=== PATIENT | female | born 1965 | race Caucasian/White ===

== ENCOUNTER 2018-03-13 23:12 | Emergency (ER) | payer OTHER ==
[2018-03-13] MEDS: DIPHTH,PERTUSS(ACELL),TET TOX 0.5 ML DISP.SYRIN. VAX IM (23:45)
== END 2018-03-14 00:01 | disposition home or self-care (01) ==
LOC: ER 03-14 00:01
DX: S80.11XA Contusion of right lower leg, initial encounter (principal); J44.9 Chronic obstructive pulmonary disease, unspecified; K21.9 Gastro-esophageal reflux disease without esophagitis; X58.XXXA Exposure to other specified factors, initial encounter; Y93.89 Activity, other specified; Y99.8 Other external cause status; Y92.89 Other specified places as the place of occurrence of the external cause
CPT/HCPCS: 73590; 90471; 90715; 99284-25

== ENCOUNTER 2018-12-19 19:34 | Emergency (ER) | payer SELFPAY ==
[~2018-12-19] VITALS: Ht 162.6 cm; Wt 90.7 kg
[~2018-12-19 19:34] MED LIST: ACET500T68 PO; AMIT100T PO; ATROVENT HFA12.9 GM IH; BUDE10.22 IH; BUPR150T8 PO; CIPR500T94 PO; FLUO20CA8 PO; IPRA4AER IH; LEVO500T8 PO; OMEP20TA63 PO; PRED-220 PO; VENTOLIN HFA18 GM INH; ZOLP10TA4 PO; ZOLP12.54 PO
[2018-12-19] MEDS: IV NORMAL SALINE 500ML BAG 500 ML IV ONE (20:22)
[2018-12-19 20:27] LABS: BASO # 0.1 x10^3/uL (0.0-0.2); BASO % 1 % (0-3); EOS # 0.2 x10^3/uL (0.0-0.7); EOS % 2 % (0-3); HEMATOCRIT 46.1 % (36.0-47.0); HEMOGLOBIN 15.6 g/dL (12.0-15.5); LYMPH # 2.8 x10^3/uL (1.0-4.8); LYMPH % 28 % (24-48); MEAN CORPUSCULAR HEMOGLOBIN 29 pg (25-35); MEAN CORPUSCULAR HGB CONC 34 g/dL (31-37); MEAN CORPUSCULAR VOLUME 87 fL (79-100); MONO # 0.4 x10^3/uL (0.0-1.1); MONO % 4 % (0-9); NEUT # 6.7 x10^3uL (1.8-7.7); NEUT % 66 % (31-73); PLATELET COUNT 227 x10^3/uL (140-400); RED BLOOD COUNT 5.33 x10^6/uL (3.50-5.40); RED CELL DISTRIBUTION WIDTH 14.9 % (11.5-14.5); WHITE BLOOD COUNT 10.2 x10^3/uL (4.0-11.0)
--- NOTE | 2018-12-19 20:28 | PHYS DOC ---
Past Medical History Past Medical History: COPD, Depression, GERD, Other Additional Past Medical Histor: INSOMNIA, CARPEL TUNNEL Past Surgical History: Tubal ligation Additional Past Surgical Histo: RIGHT HAND, LEFT HAND,RIGHT ELBOW, CARPEL TUNNEL Smoking: Cigarettes, 1 Pack Per Day Additional Information: 3-5 minutes of counseling regarding smoking cessation was provided. Alcohol Use: None Drug Use: None Adult General Chief Complaint Chief Complaint: DIZZY/LIGHT HEADED HPI HPI Patient is a 53 year old female who presents with dizziness and lightheadedness. This started earlier today. No chest pain or palpitations. Patient has had similar symptoms when she's had COPD with respiratory failure however she is not feeling any difficulty breathing at this time. She notes that her mouth is dry. Denies any nausea or vomiting reports symptoms get worse with standing better with sitting denies any polydipsia, polyuria, polyphagia. No family history of diabetes. No fever or chills. The intensity is moderate for the dizziness when she is standing up.[] Review of Systems Review of Systems Constitutional: Denies fever or chills [] Eyes: Denies change in visual acuity, redness, or eye pain [] HENT: Denies nasal congestion or sore throat [] Respiratory: Denies cough or shortness of breath [] Cardiovascular: No chest pain or palpitations[] GI: Denies abdominal pain, nausea, vomiting, bloody stools or diarrhea [] : Denies dysuria or hematuria [] Musculoskeletal: Denies back pain or joint pain [] Integument: Denies rash or skin lesions [] Neurologic: Denies headache, focal weakness or sensory changes [] Endocrine: Denies polyuria or polydipsia [] All other systems were reviewed and found to be within normal limits, except as documented in this note. Current Medications Current Medications Current Medications Medications (Trade) Dose Ordered Sig/Mary Start Time Stop Time Status Last Admin Dose Admin Sodium Chloride 500 ml @ 500 mls/hr 1X ONCE 12/19/18 20:15 12/19/18 21:14 DC 12/19/18 20:22 500 MLS/HR Allergies Allergies Allergies Coded Allergies Type Severity Reaction Last Updated Verified doxycycline Allergy Intermediate rash and sob 07/28/18 Yes Physical Exam Physical Exam Constitutional: Well developed, well nourished, no acute distress, non-toxic appearance. [] HENT: Normocephalic, atraumatic, bilateral external ears normal, oropharynx dry chest membranes, no oral exudates, nose normal. [] Eyes: PERRLA, EOMI, conjunctiva normal, no discharge. [] Neck: Normal range of motion, no tenderness, supple, no stridor. [] Cardiovascular:Heart rate regular rhythm, no murmur [] Lungs & Thorax: Bilateral breath sounds clear to auscultation [] Abdomen: Bowel sounds normal, soft, no tenderness, no masses, no pulsatile masses. [] Skin: Warm, dry, no erythema, no rash. [] Back: No tenderness, no CVA tenderness. [] Extremities: No tenderness, no cyanosis, no clubbing, ROM intact, no edema. [] Neurologic: Alert and oriented X 3, normal motor function, normal sensory function, no focal deficits noted. No nystagmus noted.[] Psychologic: Affect normal, judgement normal, mood normal. [] Current Patient Data Vital Signs Vital Signs Date Time Temp Pulse Resp B/P (MAP) Pulse Ox O2 Delivery O2 Flow Rate FiO2 12/19/18 20:01 98.6 86 20 151/81 (104) 96 Room Air 98.6 Lab Values Laboratory Tests Test 12/19/18 20:00 12/19/18 20:08 Urine Collection Type Unknown Urine Color Yellow Urine Clarity Clear Urine pH 6.5 Urine Specific Enochs 1.010 Urine Protein Negative mg/dL (NEG-TRACE) Urine Glucose (UA) Negative mg/dL (NEG) Urine Ketones (Stick) Negative mg/dL (NEG) Urine Blood Negative (NEG) Urine Nitrite Negative (NEG) Urine Bilirubin Negative (NEG) Urine Urobilinogen Dipstick 0.2 mg/dL (0.2 mg/dL) Urine Leukocyte Esterase Small (NEG) Urine RBC 0 /HPF (0-2) Urine WBC 5-10 /HPF (0-4) Urine Squamous Epithelial Cells Mod /LPF Urine Bacteria Mod /HPF (0-FEW) White Blood Count 10.2 x10^3/uL (4.0-11.0) Red Blood Count 5.33 x10^6/uL (3.50-5.40) Hemoglobin 15.6 g/dL (12.0-15.5) H Hematocrit 46.1 % (36.0-47.0) Mean Corpuscular Volume 87 fL (79-100) Mean Corpuscular Hemoglobin 29 pg (25-35) Mean Corpuscular Hemoglobin Concent 34 g/dL (31-37) Red Cell Distribution Width 14.9 % (11.5-14.5) H Platelet Count 227 x10^3/uL (140-400) Neutrophils (%) (Auto) 66 % (31-73) Lymphocytes (%) (Auto) 28 % (24-48) Monocytes (%) (Auto) 4 % (0-9) Eosinophils (%) (Auto) 2 % (0-3) Basophils (%) (Auto) 1 % (0-3) Neutrophils # (Auto) 6.7 x10^3uL (1.8-7.7) Lymphocytes # (Auto) 2.8 x10^3/uL (1.0-4.8) Monocytes # (Auto) 0.4 x10^3/uL (0.0-1.1) Eosinophils # (Auto) 0.2 x10^3/uL (0.0-0.7) Basophils # (Auto) 0.1 x10^3/uL (0.0-0.2) Prothrombin Time 12.5 SEC (11.7-14.0) Prothrombin Time INR 1.0 (0.8-1.1) Sodium Level 137 mmol/L (136-145) Potassium Level 3.7 mmol/L (3.5-5.1) Chloride Level 99 mmol/L (98-107) Carbon Dioxide Level 30 mmol/L (21-32) Anion Gap 8 (6-14) Blood Urea Nitrogen 6 mg/dL (7-20) L Creatinine 0.9 mg/dL (0.6-1.0) Estimated GFR (Cockcroft-Gault) 65.0 BUN/Creatinine Ratio 7 (6-20) Glucose Level 102 mg/dL (70-99) H Calcium Level 9.3 mg/dL (8.5-10.1) Magnesium Level 2.0 mg/dL (1.8-2.4) Total Bilirubin 0.3 mg/dL (0.2-1.0) Aspartate Amino Transferase (AST) 23 U/L (15-37) Alanine Aminotransferase (ALT) 17 U/L (14-59) Alkaline Phosphatase 132 U/L (46-116) H Troponin I Quantitative < 0.017 ng/mL (0.000-0.055) II-Ekl-Z-Type Natriuretic Peptide 32 pg/mL (0-124) Total Protein 7.8 g/dL (6.4-8.2) Albumin 3.7 g/dL (3.4-5.0) Albumin/Globulin Ratio 0.9 (1.0-1.7) L Laboratory Tests 12/19/18 20:08 Laboratory Tests 12/19/18 20:08 EKG EKG EKG shows a sinus rhythm at 81 bpm, left axis, QTC of 474 ms, no ST elevations, compared with EKG of 07/27/2018, no acute changes are present.[] Interpretation Time: Interpreted by me at 2008 Radiology/Procedures Radiology/Procedures Portable AP chest X-ray COMPARISON:07/27/2018 FINDINGS: Heart is normal in size. Bilateral prominent interstitial opacities. No focal herniation. No pneumothorax or pleural effusion. Visualized bony thorax within normal limits. IMPRESSION: Bilateral interstitial opacities may be secondary to interstitial pulmonary edema or atypical/viral infection. CT head without IV contrast COMPARISON:None FINDINGS: No pathologic extra-axial or intra-axial fluid collection. The ventricles and basal cisterns are within normal limits. No acute intracranial bleed. No focal loss of martin-white differentiation. Visualized orbits are normal limits. No suspicious calvarial lesion. Visualized paranasal sinuses and mastoid air cells are clear. IMPRESSION: No acute intracranial process on this noncontrast CT. If concern for acute ischemic stroke is high, please consider MRI brain.[] Course & Med Decision Making Course & Med Decision Making Pertinent Labs and Imaging studies reviewed. (See chart for details) Medical decision making: There is no evidence of an acute coronary syndrome, no evidence of stroke syndrome, mass, or bleed. Patient does not appear to be in congestive heart failure. This may be an atypical/viral infection. May also be related to hydration status given her physical exam however her orthostatic vital signs were appropriate. She is also noted to have white cells in the urine although this appears to be a contaminated specimen. We will cover both respiratory and urine with antibiotic coverage. ED course: Patient arrived, was placed in bed, tolerated exam well. Patient was transferred to and from [place] with any complications. After return of the laboratory and imaging findings, these were discussed with patient and family who voiced understanding. All questions were answered. Patient was discharged in improved condition.[] Dragon Disclaimer Dragon Disclaimer This electronic medical record was generated, in whole or in part, using a voice recognition dictation system. Departure Departure Impression: Primary Impression: Dizziness Additional Impressions: Urinary tract infection Lung infection Disposition: 01 HOME, SELF-CARE Condition: IMPROVED Referrals: SEVEN ALBARADO JR, MD (PCP) Follow-up in 2 days Patient Instructions: Chronic Obstructive Pulmonary Disease, Dizziness, Urinary Tract Infection Additional Instructions: Drink plenty of fluids. Follow-up with your regular doctor. Return to the ER if worsening dizziness, difficulty breathing, or any other concerns. Scripts Sulfamethoxazole/Trimethoprim (BACTRIM DS TABLET) 1 Each Tablet 1 TAB PO BID, #20 TAB Prov: JUAN LUIS ROCK DO 12/19/18 Problem Qualifiers Additional Impressions: Urinary tract infection Urinary tract infection type: site unspecified Hematuria presence: without hematuria Qualified Codes: N39.0 - Urinary tract infection, site not specified JUAN LUIS ROCK DO Dec 19, 2018 20:28
[2018-12-19 20:32] LABS: BILIRUBIN,URINE NEGATIVE (NEG); CLARITY,URINE CLEAR; COLOR,URINE YELLOW; NITRITE,URINE NEGATIVE (NEG); PH,URINE 6.5; PROTEIN,URINE NEGATIVE (NEG-TRACE); UROBILINOGEN,URINE 0.2 mg/dL (0.2 mg/dL)
[2018-12-19 20:35] LABS: CALCIUM 9.3 mg/dL (8.5-10.1); CREATININE 0.9 mg/dL (0.6-1.0); POTASSIUM 3.7 mmol/L (3.5-5.1); PROTHROMBIN TIME PATIENT 12.5 SEC (11.7-14.0)
[2018-12-19 20:41] LABS: ALBUMIN 3.7 g/dL (3.4-5.0); ALBUMIN/GLOBULIN RATIO 0.9 (1.0-1.7); TOTAL BILIRUBIN 0.3 mg/dL (0.2-1.0); TOTAL PROTEIN 7.8 g/dL (6.4-8.2)
[2018-12-19 20:42] LABS: BACTERIA,URINE MOD /HPF (0-FEW); RBC,URINE 0 /HPF (0-2); SQUAMOUS EPITHELIAL CELL,UR MOD /LPF
--- NOTE | 2018-12-19 21:00 | RAD ---
PQRS Compliance statement: One or more of the following individualized dose reduction techniques were utilized for this examination: 1. Automated exposure control. 2. Adjustment of the mA and/or kV according to patient size. 3. Use of iterative reconstruction technique. Indication:DIZZINESS TECHNIQUE: CT head without IV contrast COMPARISON:None FINDINGS: No pathologic extra-axial or intra-axial fluid collection. The ventricles and basal cisterns are within normal limits. No acute intracranial bleed. No focal loss of martin-white differentiation. Visualized orbits are normal limits. No suspicious calvarial lesion. Visualized paranasal sinuses and mastoid air cells are clear. IMPRESSION: No acute intracranial process on this noncontrast CT. If concern for acute ischemic stroke is high, please consider MRI brain. Electronically signed by: Vinicio Chau DO (12/19/2018 8:56 PM) [facility]
--- NOTE | 2018-12-19 21:10 | RAD ---
Indication:Dizzy TECHNIQUE:Portable AP chest X-ray COMPARISON:07/27/2018 FINDINGS: Heart is normal in size. Bilateral prominent interstitial opacities. No focal herniation. No pneumothorax or pleural effusion. Visualized bony thorax within normal limits. IMPRESSION: Bilateral interstitial opacities may be secondary to interstitial pulmonary edema or atypical/viral infection. Electronically signed by: Vinicio Chau DO (12/19/2018 9:05 PM) [facility]
[2018-12-19] MEDS ORDERED: SULF1TAB24 PO (21:34)
[2018-12-19 21:52] VITALS: BP 124/67
--- NOTE | 2018-12-20 01:17 | EKG ---
[facility] [address] [place] [address] Test Date: 2018-12-19 Test Time: 20:08:59 Pat Name: CHAY BAKER Department: Room: Gender: F Chief Learning Officer: : 1965 Requested By: JUAN LUIS ROCK Order Number: [id number] Reading MD: Measurements Intervals Ryder Rate: 81 P: 44 MA: 138 QRS: -21 QRSD: 80 T: 32 QT: 408 QTc: 474 Interpretive Statements SINUS RHYTHM LEFTWARD AXIS QRS(T) CONTOUR ABNORMALITY CONSIDER ANTEROSEPTAL MYOCARDIAL DAMAGE PROLONGED QT POSSIBLY ABNORMAL ECG RI6.01 No previous ECG available for comparison
== END 2018-12-19 21:56 | disposition home or self-care (01) ==
LOC: ER 19:34
DX: N39.0 Urinary tract infection, site not specified (principal); R42 Dizziness and giddiness; J18.9 Pneumonia, unspecified organism; J44.9 Chronic obstructive pulmonary disease, unspecified; F32.9 Major depressive disorder, single episode, unspecified; K21.9 Gastro-esophageal reflux disease without esophagitis; F17.210 Nicotine dependence, cigarettes, uncomplicated; Z98.51 Tubal ligation status; Z88.1 Allergy status to other antibiotic agents
CPT/HCPCS: 36415; 70450; 71045; 80053; 81001; 83735; 83880; 84484; 85025; 85610; 93005; 96360; 99284; J7040

== ENCOUNTER 2019-09-18 02:31 | Emergency (ER) | payer SELFPAY ==
[~2019-09-18] VITALS: Ht 170.2 cm; Wt 90.7 kg
[~2019-09-18 02:31] MED LIST changes: +SULF1TAB24 PO
[2019-09-18] MEDS ORDERED: IPRATRPIUM/ALBUTEROL 0.5/2.5MG 3 ML NEBU. ONE (02:49)
[2019-09-18] MEDS ORDERED: IPRATRPIUM/ALBUTEROL 0.5/2.5MG 3 ML NEBU. NEB ONE (03:00)
[2019-09-18] MEDS ORDERED: EPINEPHrine 1 MG/ML VIAL IM PRN (03:45)
[2019-09-18] MEDS ORDERED: IV NORMAL SALINE 1000ML BAG 500 ML IV ONE (03:45)
[2019-09-18] MEDS ORDERED: RACEPINEPHRINE 2.25% 0.5 ML NEBU. NEB ONE (04:00)
--- NOTE | 2019-09-18 05:08 | PHYS DOC ---
Past Medical History Past Medical History: COPD, Depression, GERD, Other Additional Past Medical Histor: INSOMNIA, CARPEL TUNNEL Past Surgical History: Tubal ligation Additional Past Surgical Histo: RIGHT HAND, LEFT HAND,RIGHT ELBOW, CARPEL TUNNEL Alcohol Use: None Drug Use: None Adult General Chief Complaint Chief Complaint: ALLERGIC REACTION HPI HPI Patient is a 54 year old female presents to the ED with a chief complaint of allergic reaction. Patient states that she took an unknown medication which caused her to have hives and felt like her throat was closing. Patient has a history of COPD. EMS arrived and gave 50 mg IV Benadryl. Family states that mistakenly patient took the medication for the fish tank which is goldfish amoxicillin and took it for 2 days. Patient states that she did not do this to herself but that it was an accident. Review of Systems Review of Systems Constitutional: Denies fever or chills [] Eyes: Denies change in visual acuity, redness, or eye pain [] HENT: Complains of pain in her throat[] Respiratory: Complains of shortness of breath[] Cardiovascular: Denies chest pain[] GI: Denies abdominal pain, nausea, vomiting, bloody stools or diarrhea [] : Denies dysuria or hematuria [] Musculoskeletal: Denies back pain or joint pain [] Integument: Complains of Diffuse hives Neurologic: Denies headache, focal weakness or sensory changes [] All other systems were reviewed and found to be within normal limits, except as documented in this note. Current Medications Current Medications Current Medications Medications (Trade) Dose Ordered Sig/Mary Start Time Stop Time Status Last Admin Dose Admin Albuterol/ Ipratropium (Duoneb) 3 ml STK-MED ONCE 09/18/19 02:49 09/18/19 02:49 DC Epinephrine (S2 Racepinephrine) 0.5 ml 1X ONCE 09/18/19 04:00 09/18/19 04:01 DC 09/18/19 04:05 0.5 ML Epinephrine HCl (Adrenalin) 0.3 mg PRN Q5MIN PRN 09/18/19 03:45 Sodium Chloride 500 ml @ 500 mls/hr 1X ONCE 09/18/19 03:45 09/18/19 04:44 DC Allergies Allergies Allergies Coded Allergies Type Severity Reaction Last Updated Verified doxycycline Allergy Intermediate rash and sob 9/9/18 Yes Physical Exam Physical Exam Constitutional: Well developed, well nourished, no acute distress, non-toxic appearance. [] HENT: Normocephalic, atraumatic[] Eyes: PERRLA, EOMI [] Neck: Normal range of motion, no tenderness, airways patent[] Cardiovascular:Heart rate regular rhythm, no murmur [] Lungs & Thorax: Wheezing bilaterally[] Abdomen: Bowel sounds normal, soft, no tenderness [] Skin: Diffuse rash consistent with hives[] Extremities: No tenderness, ROM intact, no edema. [] Neurologic: Alert and oriented X 3 [] Current Patient Data Vital Signs Vital Signs Date Time Temp Pulse Resp B/P (MAP) Pulse Ox O2 Delivery O2 Flow Rate FiO2 09/18/19 05:38 76 18 119/75 (90) 96 Nasal Cannula 2.0 09/18/19 02:34 95.3 95.3 EKG EKG [] Radiology/Procedures Radiology/Procedures [] Course & Med Decision Making Course & Med Decision Making On arrival to the ER patient was given Solu-Medrol 125 mg IV and Pepcid 20 mg IV. Patient also given a DuoNeb breathing treatment. Patient's family also came to the ED. Patient states that her throat was hurting and she feels like her throat is tight. Ordered racemic epinephrine elevation treatment. We'll continue to monitor the patient. Patient's rash is almost resolved. Patient is sleeping comfortably in the ER. Discussed results and plan of care with patient. Patient is instructed to follow up with PCP in one to 2 days. Appropriate discharge instructions given to patient to return to the ED or to seek immediate medical evaluation. Patient is instructed to return to the ED if symptoms worsen or if any concerns. Dragon Disclaimer Dragon Disclaimer This electronic medical record was generated, in whole or in part, using a voice recognition dictation system. Departure Departure Impression: Primary Impression: Allergic reaction Disposition: 01 HOME, SELF-CARE Condition: IMPROVED Referrals: SEVEN ALBARADO JR, MD (PCP) Patient Instructions: Allergies, Generic, Drug Allergy Additional Instructions: Use Benadryl as needed. Scripts Famotidine (PEPCID) 20 Mg Tablet 20 MG PO DAILY, #7 TAB Prov: SAULO GERARD DO 09/18/19 Prednisone (PREDNISONE) 20 Mg Tablet 2 TAB PO DAILY for 5 Days, #10 TAB Prov: GOLLAPALLI,SAULO E DO 09/18/19 SAULO GERARD DO Sep 18, 2019 05:08
[2019-09-18] MEDS ORDERED: FAMO-63 PO (05:29)
[2019-09-18] MEDS ORDERED: PRED20TA PO (05:29)
[2019-09-18 06:08] VITALS: BP 118/71
[2019-09-18] MEDS ORDERED: methylPREDNISolone SOD SUCC PF 125 MG/2 ML VIAL. IV ONE (23:15)
[2019-09-18] MEDS ORDERED: diphenhydrAMINE 50 MG/ML VIAL IVP ONE (23:15)
[2019-09-18] MEDS ORDERED: FAMOTIDINE 20 MG/2 ML VIAL IVP ONE (23:15)
== END 2019-09-18 06:42 | disposition home or self-care (01) ==
LOC: ER 02:31
DX: L50.0 Allergic urticaria (principal); R06.2 Wheezing; J44.9 Chronic obstructive pulmonary disease, unspecified; K21.9 Gastro-esophageal reflux disease without esophagitis; F32.9 Major depressive disorder, single episode, unspecified; Z98.51 Tubal ligation status; Z88.1 Allergy status to other antibiotic agents
CPT/HCPCS: 94640; 96374; 96375; 99284; J2930; J3490; J7030; J7620

== ENCOUNTER 2020-01-11 12:42 | Emergency (ER) | payer SELFPAY ==
[~2020-01-11] VITALS: Ht 165.1 cm; Wt 85.0 kg
[~2020-01-11 12:42] MED LIST changes: +FAMO-63 PO; +FLUO20CA20 PO; -FLUO20CA8 PO; +PRED20TA PO
[2020-01-11] MEDS ORDERED: EPINEPHrine 1 MG/ML VIAL ONE (12:52)
[2020-01-11] MEDS ORDERED: EPINEPHrine 1 MG/ML VIAL IM ONE (13:00)
[2020-01-11] MEDS ORDERED: diphenhydrAMINE 50 MG/ML VIAL IV ONE (13:00)
[2020-01-11] MEDS ORDERED: methylPREDNISolone SOD SUCC PF 125 MG/2 ML VIAL. IV ONE (13:00)
[2020-01-11] MEDS ORDERED: FAMOTIDINE 20 MG/2 ML VIAL IVP ONE (13:00)
[2020-01-11 13:12] LABS: BASO % 0 % (0-3); EOS # 0.1 x10^3/uL (0.0-0.7); EOS % 2 % (0-3); HEMATOCRIT 44.9 % (36.0-47.0); HEMOGLOBIN 15.3 g/dL (12.0-15.5); LYMPH # 2.4 x10^3/uL (1.0-4.8); LYMPH % 42 % (24-48); MEAN CORPUSCULAR HEMOGLOBIN 30 pg (25-35); MEAN CORPUSCULAR HGB CONC 34 g/dL (31-37); MEAN CORPUSCULAR VOLUME 88 fL (79-100); MONO # 0.1 x10^3/uL (0.0-1.1); MONO % 3 % (0-9); NEUT # 3.1 x10^3/uL (1.8-7.7); NEUT % 54 % (31-73); PLATELET COUNT 216 x10^3/uL (140-400); RED BLOOD COUNT 5.11 x10^6/uL (3.50-5.40); RED CELL DISTRIBUTION WIDTH 15.1 % (11.5-14.5); WHITE BLOOD COUNT 5.7 x10^3/uL (4.0-11.0)
[2020-01-11 13:13] LABS: CALCIUM 8.1 mg/dL (8.5-10.1); CREATININE 0.8 mg/dL (0.6-1.0); GFR 74.2; POTASSIUM 3.8 mmol/L (3.5-5.1)
[2020-01-11] MEDS ORDERED: RACEPINEPHRINE 2.25% 0.5 ML NEBU. NEB ONE (13:30)
[2020-01-11 15:00] VITALS: BP 153/100
[2020-01-11] MEDS ORDERED: EPIPEN 2-P0.3 MG/0.3 IM (15:20)
[2020-01-11] MEDS ORDERED: PRED50TA PO (15:20)
[2020-01-11] MEDS ORDERED: FAMO-63 PO (15:20)
--- NOTE | 2020-01-11 15:52 | PHYS DOC ---
Past Medical History Past Medical History: COPD, Depression, GERD, Other Additional Past Medical Histor: INSOMNIA, CARPEL TUNNEL Past Surgical History: Tubal ligation Additional Past Surgical Histo: RIGHT HAND, LEFT HAND,RIGHT ELBOW, CARPEL TUNNEL Smoking Status: Current Every Day Smoker Alcohol Use: None Drug Use: None Adult General Chief Complaint Chief Complaint: ALLERGIC REACTION HPI HPI Patient is a 54 year old female presenting with chief complaint of allergic reaction she took amoxicillin and within 30 minutes she had development of diffuse redness all over her body as well as shortness of breath and felt like she could not swallow. Paramedics gave a dose of epinephrine Patient is a previous history of amoxicillin allergy but did not think it was this severe. Review of Systems Review of Systems Limited by the acuity Current Medications Current Medications Current Medications Medications (Trade) Dose Ordered Sig/Mary Start Time Stop Time Status Last Admin Dose Admin Diphenhydramine HCl (Benadryl) 50 mg 1X ONCE 01/11/20 13:00 01/11/20 13:01 DC Epinephrine (S2 Racepinephrine) 0.5 ml 1X ONCE 01/11/20 13:30 01/11/20 13:31 DC 01/11/20 13:40 0.5 ML Epinephrine HCl (Adrenalin) 0.3 mg 1X ONCE 01/11/20 13:00 01/11/20 13:01 DC 01/11/20 12:55 0.3 MG Famotidine (Pepcid Vial) 20 mg 1X ONCE 01/11/20 13:00 01/11/20 13:01 DC 01/11/20 13:03 20 MG Methylprednisolone Sodium Succinate (SOLU-Medrol 125MG VIAL) 125 mg 1X ONCE 01/11/20 13:00 01/11/20 13:01 DC 01/11/20 13:03 125 MG Allergies Allergies Allergies Coded Allergies Type Severity Reaction Last Updated Verified amoxicillin Allergy Severe anaphylaxis 01/11/20 Yes doxycycline Allergy Intermediate rash and sob 07/28/18 Yes Physical Exam Physical Exam Constitutional: Well developed, ill-appearing HENT: No stridor but there is some swelling of the tongue as well as a MalAMPATI 3 there is some uvula edema Neck: Normal range of motion, no tenderness, supple, no stridor. [] Cardiovascular:Heart rate regular rhythm, no murmur [] Lungs & Thorax: Bilateral breath sounds clear to auscultation []no definite wheezing Abdomen: Bowel sounds normal, soft, no tenderness, no masses, no pulsatile masses. [] Skin: Diffuse erythematous rash on along the whole body Back: No tenderness, no CVA tenderness. [] Extremities: No tenderness, no cyanosis, no clubbing, ROM intact, no edema. [] Neurologic: Alert and oriented X 3, normal motor function, normal sensory function, no focal deficits noted. [] Psychologic: Affect normal, judgement normal, mood normal. [] Current Patient Data Vital Signs Vital Signs Date Time Temp Pulse Resp B/P (MAP) Pulse Ox O2 Delivery O2 Flow Rate FiO2 01/11/20 15:00 84 153/100 (117) 97 Room Air 01/11/20 12:42 96.0 20 96.0 Lab Values Laboratory Tests Test 01/11/20 12:45 White Blood Count 5.7 x10^3/uL (4.0-11.0) Red Blood Count 5.11 x10^6/uL (3.50-5.40) Hemoglobin 15.3 g/dL (12.0-15.5) Hematocrit 44.9 % (36.0-47.0) Mean Corpuscular Volume 88 fL (79-100) Mean Corpuscular Hemoglobin 30 pg (25-35) Mean Corpuscular Hemoglobin Concent 34 g/dL (31-37) Red Cell Distribution Width 15.1 % (11.5-14.5) H Platelet Count 216 x10^3/uL (140-400) Neutrophils (%) (Auto) 54 % (31-73) Lymphocytes (%) (Auto) 42 % (24-48) Monocytes (%) (Auto) 3 % (0-9) Eosinophils (%) (Auto) 2 % (0-3) Basophils (%) (Auto) 0 % (0-3) Neutrophils # (Auto) 3.1 x10^3/uL (1.8-7.7) Lymphocytes # (Auto) 2.4 x10^3/uL (1.0-4.8) Monocytes # (Auto) 0.1 x10^3/uL (0.0-1.1) Eosinophils # (Auto) 0.1 x10^3/uL (0.0-0.7) Basophils # (Auto) 0.0 x10^3/uL (0.0-0.2) Sodium Level 138 mmol/L (136-145) Potassium Level 3.8 mmol/L (3.5-5.1) Chloride Level 103 mmol/L (98-107) Carbon Dioxide Level 27 mmol/L (21-32) Anion Gap 8 (6-14) Blood Urea Nitrogen 9 mg/dL (7-20) Creatinine 0.8 mg/dL (0.6-1.0) Estimated GFR (Cockcroft-Gault) 74.2 Glucose Level 180 mg/dL (70-99) H Calcium Level 8.1 mg/dL (8.5-10.1) L Laboratory Tests 01/11/20 12:45 Laboratory Tests 01/11/20 12:45 EKG EKG [] Radiology/Procedures Radiology/Procedures [] Course & Med Decision Making Course & Med Decision Making Critical care time was 45 minutes exclusive of procedures.Pertinent Labs and Imaging studies reviewed. (See chart for details) []This is a 54 show female with anaphylaxis secondary to amoxicillin. In the emergency room initially I was quite concerned about her airway she was able to talk but had a very whispery hoarse voice but there was no stridor and she was tolerating her secretions her oxygen on supplement oxygen we did get up to 100% on a nonrebreather. I did call anesthesia down in the attending DR MARTINES as well as [employer] they also did come down and evaluate the patient. At this point time we agreed on racemic epinephrine as well as optimize medical management of anaphylaxis which we are doing already. On reevaluation patient was reevaluated several times by me at the bedside for her upper airway symptoms improved dramatically she was able to talk her force voice went away she had a normal voice and reevaluation the swelling of her tongue did go down. It was basically normal on reevaluation a couple hours later. We did give the racemic epi time to wear off and the patient remained asymptomatic she was feeling much better. I did offer admission overnight for observation due to the severity of her symptoms but she was very eager to go home. I talked with her in detail about strict return precautions for any recrudescence of symptoms and she is agreeable to that plan. Prescription for prednisone as well as Pepcid continue Benadryl I gave an EpiPen prescription and counseled her on indications for use. 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 Departure Departure Impression: Primary Impression: Anaphylaxis Disposition: 01 HOME, SELF-CARE Condition: IMPROVED Patient Instructions: Anaphylactic Reaction, [id number] Scripts Epinephrine (EPIPEN 2-JAD) 0.3 Mg/0.3 Ml Auto.injct 1 SYR IM ONCE PRN for ANAPHYLAXIS for 1 Day, #1 PACKET 0 Refills Prov: ELENITA NÚÑEZ MD 01/11/20 Famotidine (PEPCID) 20 Mg Tablet 20 MG PO BID for 5 Days, #10 TAB Prov: ELENITA NÚÑEZ MD 01/11/20 Prednisone (PREDNISONE) 50 Mg Tablet 1 TAB PO DAILY, #5 TAB Prov: ELENITA NÚÑEZ MD 01/11/20 ELENITA NÚÑEZ MD Jan 11, 2020 15:52
== END 2020-01-11 15:36 | disposition home or self-care (01) ==
LOC: ER 12:42
DX: T78.2XXA Anaphylactic shock, unspecified, initial encounter (principal); T36.0X5A Adverse effect of penicillins, initial encounter; J44.9 Chronic obstructive pulmonary disease, unspecified; F32.9 Major depressive disorder, single episode, unspecified; K21.9 Gastro-esophageal reflux disease without esophagitis; F51.04 Psychophysiologic insomnia; F17.200 Nicotine dependence, unspecified, uncomplicated; Z98.51 Tubal ligation status; Z98.890 Other specified postprocedural states; Z88.1 Allergy status to other antibiotic agents; Z79.899 Other long term (current) drug therapy; Y92.89 Other specified places as the place of occurrence of the external cause
CPT/HCPCS: 36415; 80048; 85025; 94640; 96372; 96374; 96375; 99291; J0171; J2930; J3490; 99285

== ENCOUNTER 2020-01-22 02:51 | Emergency (ER) | payer SELFPAY ==
[~2020-01-22] VITALS: Ht 165.1 cm; Wt 81.8 kg
[~2020-01-22 02:51] MED LIST changes: +EPIPEN 2-P0.3 MG/0.3 IM; +PRED50TA PO
[2020-01-22] MEDS ORDERED: IV NORMAL SALINE 1000ML BAG 1,000 ML IV ONE (03:00)
[2020-01-22] MEDS ORDERED: diphenhydrAMINE 50 MG/ML VIAL IVP ONE (03:00)
[2020-01-22] MEDS ORDERED: FAMOTIDINE 20 MG/2 ML VIAL IVP ONE (03:00)
[2020-01-22] MEDS ORDERED: methylPREDNISolone SOD SUCC PF 125 MG/2 ML VIAL. IV ONE (03:00)
--- NOTE | 2020-01-22 03:02 | PHYS DOC ---
Past Medical History Past Medical History: COPD, Depression, GERD, Other Additional Past Medical Histor: INSOMNIA, CARPEL TUNNEL Past Surgical History: Tubal ligation Additional Past Surgical Histo: RIGHT HAND, LEFT HAND,RIGHT ELBOW, CARPEL TUNNEL Smoking Status: Current Every Day Smoker Alcohol Use: None Drug Use: None Adult General Chief Complaint Chief Complaint: ALLERGIC REACTION [facility] HPI Patient is a 54 year old female who presents to the ER secondary to concern for allergic reaction. Patient states that around 2:00 she took Bactrim which she had left over from a previous infection. She was taken the medication for dental infection she felt coming on and soon thereafter she began feeling tingly and developed a rash and felt as though her throat was swelling. She immediately used her EpiPen which she received from the emergency department 2 weeks ago secondary to an anaphylactic reaction to amoxicillin. She states that this help her symptoms but she continues to have some sensation of throat swelling. She has never had a reaction to Bactrim previously. She denies chest pain Review of Systems Review of Systems All other ROS is negative unless otherwise stated in HPI Current Medications Current Medications Current Medications Medications (Trade) Dose Ordered Sig/Mary Start Time Stop Time Status Last Admin Dose Admin Diphenhydramine HCl (Benadryl) 25 mg 1X ONCE 01/22/20 03:00 01/22/20 03:14 DC 01/22/20 03:12 25 MG Famotidine (Pepcid Vial) 20 mg 1X ONCE 01/22/20 03:00 01/22/20 03:14 DC 01/22/20 03:12 20 MG Methylprednisolone Sodium Succinate (SOLU-Medrol 125MG VIAL) 125 mg 1X ONCE 01/22/20 03:00 01/22/20 03:14 DC 01/22/20 03:11 125 MG Sodium Chloride 1,000 ml @ 1,000 mls/hr 1X ONCE 01/22/20 03:00 01/22/20 03:59 01/22/20 03:13 1,000 MLS/HR Allergies Allergies Allergies Coded Allergies Type Severity Reaction Last Updated Verified amoxicillin Allergy Severe anaphylaxis 01/11/20 Yes doxycycline Allergy Intermediate rash and sob 07/28/18 Yes Physical Exam Physical Exam Constitutional: Well developed, well nourished, no acute distress, non-toxic appearance. [] HENT: Normocephalic, atraumatic, bilateral external ears normal, oropharynx mo ist, no oral exudates, nose normal. No throat swelling Eyes: PERRLA, EOMI, conjunctiva normal, no discharge. [] Neck: Normal range of motion, no tenderness, supple, no stridor. [] Cardiovascular:Heart rate regular rhythm, no murmur [] Lungs & Thorax: Bilateral breath sounds clear to auscultation [] Abdomen: Bowel sounds normal, soft, no tenderness, no masses, no pulsatile masses. [] Skin: Warm, dry, evidence of mild erythema around the neck and on the forearms bilaterally and on the abdomen. Back: No tenderness, no CVA tenderness. [] Extremities: No tenderness, no cyanosis, no clubbing, ROM intact, no edema. [] Neurologic: Alert and oriented X 3, normal motor function, normal sensory function, no focal deficits noted. [] Psychologic: Affect normal, judgement normal, mood normal. [] Current Patient Data Vital Signs Vital Signs Date Time Temp Pulse Resp B/P (MAP) Pulse Ox O2 Delivery O2 Flow Rate FiO2 01/22/20 02:55 98.0 87 18 163/89 (113) 97 Room Air 98.0 EKG EKG [] Course & Med Decision Making Course & Med Decision Making Pertinent Labs and Imaging studies reviewed. (See chart for details) 0303: Patient seen for anaphylactic reaction. Symptoms seem to be improving with epinephrine. We'll place an IV and given IV fluids and Benadryl Solu-Medrol and Pepcid. Monitor. 0344: Reaction improved. Will d/c. Panfilo Disclaimer Panfilo Disclaimer This electronic medical record was generated, in whole or in part, using a voice recognition dictation system. Departure Departure Impression: Primary Impression: Medication reaction Disposition: HOME, SELF-CARE Condition: IMPROVED Referrals: SEVEN ALBARADO JR, MD (PCP) Additional Instructions: Please consult your doctor before taking additional medications. ZAN AGUERO DO Jan 22, 2020 03:02
[2020-01-22 03:45] VITALS: BP 126/61
== END 2020-01-22 03:50 | disposition home or self-care (01) ==
LOC: ER 02:51
DX: T36.8X5A Adverse effect of other systemic antibiotics, initial encounter (principal); R60.0 Localized edema; J44.9 Chronic obstructive pulmonary disease, unspecified; F32.9 Major depressive disorder, single episode, unspecified; K21.9 Gastro-esophageal reflux disease without esophagitis; F17.200 Nicotine dependence, unspecified, uncomplicated; Z98.51 Tubal ligation status; Z98.890 Other specified postprocedural states; Z88.1 Allergy status to other antibiotic agents; Y92.89 Other specified places as the place of occurrence of the external cause
CPT/HCPCS: 96374; 96375; 99284; J1200; J2930; J3490; J7030

== ENCOUNTER 2020-08-04 12:34 | Emergency (ER) | payer OTHER ==
[~2020-08-04] VITALS: Ht 162.6 cm; Wt 90.9 kg
[~2020-08-04 12:34] MED LIST changes: -ZOLP12.54 PO; +ZOLP12.56 PO
[2020-08-04] MEDS ORDERED: HYDROcodone/APAP 5/325MG 1 TAB TABLET PO ONE (15:00)
[2020-08-04] MEDS ORDERED: NEOMY/BACITR/POLYMYXIN OINT PACKET. TP ONE (15:00)
--- NOTE | 2020-08-04 15:15 | PHYS DOC ---
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 She states that when the metal cart hit the right lateral knee and it left a bruise. She states since then she is had swelling and pain. She has been up and working on the extremity. She has full range of motion of the extremity. She denies any numbness or tingling. The right pedal pulse strong and present. There is no other swelling in the extremity besides the lateral side of the knee. She does have a schedule appointment On license of [facility] next . The right knee has 1-2+ swelling. There is slight tenderness to the right lateral part of the knee. She rates her pain at a 6 out of 10 and states she is been taking ibuprofen and naproxen for the pain. Patient denies any numbness or tingling, coolness of the extremity or skin color changes. She denies any focal weakness to the extremity. Patient has a history of high blood pressure and GERD. Denies any blood thinners. [] Review of Systems: Review of Systems: Constitutional: Denies fever or chills. [] Eyes: Denies change in visual acuity. [] HENT: Denies nasal congestion or sore throat. [] Respiratory: Denies cough or shortness of breath. [] Cardiovascular: Denies chest pain. Right lateral knee 1-2+ edema. [] GI: Denies abdominal pain, nausea, vomiting, bloody stools or diarrhea. [] : Denies dysuria. [] Musculoskeletal: Denies back pain. Right knee joint pain. [] Integument: Denies rash. [] Neurologic: Denies headache, focal weakness or sensory changes. [] Endocrine: Denies polyuria or polydipsia. [] Lymphatic: Denies swollen glands. [] Psychiatric: Denies depression or anxiety. [] Heart Score: Risk Factors: Risk Factors: DM, Current or recent (<one month) smoker, HTN, HLP, family history of CAD, obesity. Risk Scores: Score 0 - 3: 2.5% MACE over next 6 weeks - Discharge Home Score 4 - 6: 20.3% MACE over next 6 weeks - Admit for Clinical Observation Score 7 - 10: 72.7% MACE over next 6 weeks - Early Invasive Strategies Current Medications: Current Medications Medications (Trade) Dose Ordered Sig/Mary Start Time Stop Time Status Last Admin Dose Admin Acetaminophen/ Hydrocodone Bitart (Lortab 5/325) 1 tab 1X ONCE 08/04/20 15:00 08/04/20 15:01 DC Neomycin/ Polymyxin/ Bacitracin (Triple Antibiotic Ointment) 1 pkt 1X ONCE 08/04/20 15:00 08/04/20 15:01 DC Allergies: Allergies: Allergies Coded Allergies Type Severity Reaction Last Updated Verified amoxicillin Allergy Severe anaphylaxis 01/11/20 Yes doxycycline Allergy Intermediate rash and sob 07/28/18 Yes Physical Exam: PE: Constitutional: Well developed, well nourished, no acute distress, non-toxic appearance. [] HENT: Normocephalic, atraumatic, bilateral external ears normal, oropharynx moist, no oral exudates, nose normal. [] Eyes: PERRLA, EOMI, conjunctiva normal, no discharge. [] Neck: Normal range of motion, no tenderness, supple, no stridor. [] Cardiovascular:Heart rate regular rhythm, no murmur [] Lungs & Thorax: Bilateral breath sounds clear to auscultation [] Abdomen: Bowel sounds normal, soft, no tenderness, no masses, no pulsatile masses. [] Skin: Warm, dry, no erythema, no rash. [] Back: No tenderness, no CVA tenderness. [] Extremities: Right lateral knee tenderness, no cyanosis, no clubbing, ROM intact, right lateral knee 1-2+ edema. [] Neurologic: Alert and oriented X 3, normal motor function, normal sensory function, no focal deficits noted. [] Psychologic: Affect normal, judgement normal, mood normal. [] Current Patient Data: Vital Signs: Vital Signs Date Time Temp Pulse Resp B/P (MAP) Pulse Ox O2 Delivery O2 Flow Rate FiO2 08/04/20 13:36 98.2 92 22 152/86 (108) 94 Room Air 98.2 EKG: EKG: [] Radiology/Procedures: Radiology/Procedures: [] Impression: [facility] [address] [place] [address] IMAGING REPORT Signed PATIENT: CHAY BAKER AACCOUNT: [id number] : 1965 LOCATION: ER AGE: 54 SEX: F EXAM STATUS: REG ER ORD. PHYSICIAN: MAVERICK FLYNN APRN REASON: FALL, PAIN PROCEDURE: KNEE RIGHT 4V Study: CR KNEE RIGHT 4V Indication: Fall. Pain. Comparison: None. Findings: Small area of cortical irregularity at the medial margin of the medial trochlea as seen on the axial view. No displaced fracture or traumatic malalignment. Suspected mild medial femorotibial compartment joint space narrowing. Mild patellofemoral compartment arthrosis. Quadriceps insertion enthesophyte. Small appearing knee joint effusion seen as increased attenuation at the suprapatellar recess. Impression: 1. Small cortical irregularity at the medial aspect of the medial trochlea. This would be an unusual site for a small fracture, and though not fully excluded, may be related to overlying chondrosis. No displaced fracture or traumatic malalignment. 2. Joint effusion appearing relatively small. 3. Mild degenerative changes. Electronically signed by: MELODY RICE MD (08/04/2020 4:04 PM) [id number] DICTATED and SIGNED BY: MELODY RICE MD DATE: 08/04/20 1604 Course & Med Decision Making: Course & Med Decision Making Pertinent Labs and Imaging studies reviewed. (See chart for details) See HPI. Ambulatory with a steady gait. Full range of motion of the extremity and joints. Skin pink warm and dry. Alert and oriented x4. Speaks in full complete sentences. No calf tenderness. Patient placed in a knee immobilizer. Patient to follow-up with orthopedics. [] Dragon Disclaimer: Dragon Disclaimer: This electronic medical record was generated, in whole or in part, using a voice recognition dictation system. Departure Departure Impression: Primary Impression: Knee pain, right Qualified Codes: M25.561 - Pain in right knee Disposition: 01 HOME, SELF-CARE Condition: STABLE Referrals: SEVEN ALBARADO JR, MD (PCP) VETO CUNNINGHAM MD Patient Instructions: Knee Fracture, Adult Additional Instructions: Follow-up with orthopedics as soon as possible. Wear the knee immobilizer while you are up and moving. Try to rest and stay off the extremity as much as possible. Use ice and ibuprofen for your pain. Also you can use the [place] I have ordered for you but do not drive or drink alcohol on this as it will make you sleepy. Scripts Hydrocodone/Apap 5-325 (NORCO 5-325 TABLET) 1 Each Tablet 1 TAB PO PRN Q6HRS PRN for PAIN, #10 TAB 0 Refills Prov: MAVERICK FLYNN APRN 08/04/20 Justicifation of Admission Dx: Justifications for Admission: Justification of Admission Dx: N/A MAVERICK FLYNN APRN Aug 04, 2020 15:15
[2020-08-04 15:27] VITALS: BP 152/86
--- NOTE | 2020-08-04 16:07 | RAD ---
Study: CR KNEE RIGHT 4V Indication: Fall. Pain. Comparison: None. Findings: Small area of cortical irregularity at the medial margin of the medial trochlea as seen on the axial view. No displaced fracture or traumatic malalignment. Suspected mild medial femorotibial compartment joint space narrowing. Mild patellofemoral compartment arthrosis. Quadriceps insertion enthesophyte. Small appearing knee joint effusion seen as increased attenuation at the suprapatellar recess. Impression: 1. Small cortical irregularity at the medial aspect of the medial trochlea. This would be an unusual site for a small fracture, and though not fully excluded, may be related to overlying chondrosis. No displaced fracture or traumatic malalignment. 2. Joint effusion appearing relatively small. 3. Mild degenerative changes. Electronically signed by: MELODY RICE MD (08/04/2020 4:04 PM) [id number]
[2020-08-04] MEDS ORDERED: HYDR-3164 PO (16:27)
== END 2020-08-04 17:01 | disposition home or self-care (01) ==
LOC: ER 12:34
DX: M25.561 Pain in right knee (principal); R60.0 Localized edema; J44.9 Chronic obstructive pulmonary disease, unspecified; F32.9 Major depressive disorder, single episode, unspecified; K21.9 Gastro-esophageal reflux disease without esophagitis; F17.200 Nicotine dependence, unspecified, uncomplicated; Z98.51 Tubal ligation status; Z98.890 Other specified postprocedural states; Z88.1 Allergy status to other antibiotic agents
CPT/HCPCS: 29505; 73564; 99283

== ENCOUNTER 2021-11-21 15:01 | Emergency (ER) | payer OTHER ==
[~2021-11-21 15:01] MED LIST changes: -FLUO20CA20 PO; +FLUO20CA22 PO; +HYDR-3164 PO; -LEVO500T8 PO; +LEVO500T9 PO
== END 2021-11-21 16:18 | disposition left against medical advice (07) ==
LOC: ER 15:01
DX: R06.02 Shortness of breath (principal); Z53.21 Procedure and treatment not carried out due to patient leaving prior to being seen by health care provider